=== PATIENT | female | born 1985 | race Caucasian/White ===

== ENCOUNTER 2019-10-07 19:08 | Emergency (ER) | payer BC ==
[2019-10-07] MEDS ORDERED: HYOSCYAMINE SULFATE ODT 0.125 MG TAB.SUBL SL ONE (19:14)
[2019-10-07] MEDS ORDERED: 0.9 % SODIUM CHLORIDE 1000ML 2,000 ML IV SCH (19:15)
--- NOTE | 2019-10-07 19:18 | Emergency Department Record ---
History of Present Illness - General Stated complaint: DIARRHEA,WEAKNESS Time Seen by Provider: 10/07/19 19:14 Source: Patient Mode of Arrival: Ambulatory Limitations: No limitations - History of Present Illness Initial comments: 34 yo female presents to ED for evaluation of nausea, abdominal cramping, and loose stools for the past 36 hours. Patient reports fever symptoms at home last evening, resolved today. 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 Patient denies urinary symptoms, flank pain, or dysuria symptoms. MD complaint: Abdominal pain, Diarrhea Onset/Timin -: Hour(s) Associated Abdominal Pain: Yes Location: Diffuse Radiation: None Severity: Mild Quality: Cramping Consistency: Constant Improves with: None Worsens with: None Associated Symptoms: Fever/chills, Nausea/vomiting - Related Data Home Medications Medication Instructions Recorded Confirmed Last Taken Bupropion HCl [Bupropion Xl] 150 mg PO DAILY 10/07/19 10/07/19 Unknown Buspirone HCl [Buspar] 5 mg PO DAILY 10/07/19 10/07/19 Unknown Levothyroxine Sodium [Synthroid] 25 mcg PO DAILY 10/07/19 10/07/19 Unknown Previous Rx's Medication Instructions Recorded Hyoscyamine Sulfate [Levsin-Sl] 0.25 mg SL Q8H PRN #15 tab.subl 10/07/19 Ondansetron [Zofran Odt] 4 mg PO Q8H PRN #15 tab.rapdis 10/07/19 Allergies Allergy/AdvReac Type Severity Reaction Status Date / Time No Known Drug Allergies Allergy Verified 10/07/19 19:32 Review of Systems Constitutional: Reports: Fever, Malaise, Weakness. Denies: Chills, Night sweats Eyes: Denies: Eye discharge, Eye pain ENT: Denies: Congestion, Ear pain, Epistaxis Respiratory: Denies: Cough, Dyspnea Cardiovascular: Denies: Chest pain, Dyspnea on exertion Endocrine: Denies: Fatigue, Heat or cold intolerance Gastrointestinal: Reports: Abdominal pain, Diarrhea, Nausea. Denies: Constipation, Vomiting Genitourinary: Denies: Incontinence, Retention Musculoskeletal: Denies: Arthralgia, Back pain Skin: Denies: Bruising, Change in color Neurological: Denies: Abnormal gait, Confusion, Tingling, Tremors Psychiatric: Denies: Anxiety Hematological/Lymphatic: Denies: Anemia, Blood Clots Physical Exam - General General Appearance: Alert, Oriented x3, Cooperative, Moderate distress Limitations: No limitations - Head Head exam: Atraumatic, Normocephalic, Normal inspection Head exam detail: negative: Abrasion, Contusion, Partida's sign, General t enderness, Hematoma, Laceration - Eye Eye exam: Normal appearance. negative: Conjunctival injection, Periorbital swelling, Periorbital tenderness, Scleral icterus - ENT Ear exam: negative: Auricular hematoma, Auricular trauma Nasal Exam: negative: Active bleeding, Discharge, Dried blood, Foreign body Mouth exam: negative: Drooling, Laceration, Muffled voice, Tongue elevation - Neck Neck exam: Normal inspection. negative: Meningismus, Tenderness - Respiratory Respiratory exam: Normal lung sounds bilaterally. negative: Respiratory distress, Rhonchi, Stridor, Wheezes - Cardiovascular Cardiovascular Exam: Regular rate, Normal rhythm, Normal heart sounds - GI/Abdominal GI/Abdominal exam: Soft, Tenderness (Mild, diffuse TTP, no rebound, guarding, or peritoneal signs.). negative: Rebound, Rigid - Rectal Rectal exam: Deferred - exam: Deferred - Extremities Extremities exam: Normal inspection. negative: Pedal edema, Tenderness - Back Back exam: Denies: CVA tenderness (R), CVA tenderness (L) - Neurological Neurological exam: Alert, Normal gait, Oriented X3 - Psychiatric Psychiatric exam: Normal affect, Normal mood - Skin Skin exam: Normal color. negative: Abrasion Type of lesion: negative: abrasion Course - Reevaluation(s) Reevaluation #1: 10/07/19 20:18 Laboratory studies were reviewed and appear grossly unremarkable for an acute process. Reevaluation #2: 10/07/19 21:15 Patient was reassessed and updated on all results, reports that she is feeling much improved and appears stable for discharge at this time. Medical Decision Making - Lab Data Result diagrams: 10/07/19 19:25 10/07/19 19:53 Disposition Disposition: Discharge Clinical Impression: Diarrhea Qualifiers: Diarrhea type: unspecified type Qualified Code(s): R19.7 - Diarrhea, unspecified Disposition: Home, Self-Care Condition: (2) Stable Instructions: Acute Diarrhea (ED) Additional Instructions: Return to ED if your symptoms worsen or if you have any concerns. Levsin, Zofran, and Immodium as directed. Follow-up with your family doctor in 3-5 days as directed. Prescriptions: Hyoscyamine Sulfate [Levsin-Sl] 0.25 mg SL Q8H PRN #15 tab.subl PRN Reason: Abdominal Pain Ondansetron [Zofran Odt] 4 mg PO Q8H PRN #15 tab.rapdis PRN Reason: Nausea/Vomiting Time of Disposition: 21:15 Quality - Quality Measures Quality Measures: N/A - Blood Pressure Screening Does Patient Have Any of the Following: No Blood Pressure Classification: Pre-Hypertensive BP Reading Systolic Measurement: 123 Diastolic Measurement: 72 Screening for High Blood Pressure: < Pre-Hypertensive BP, F/U Documented > [[id number]] Pre-Hypertensive Follow-up Interventions: Referral to alternative/primary care provider.
[2019-10-07 19:29] LABS: ABSOLUTE NEUTROPHIL COUNT 6.55; BASO % 0.2 % (0-6); EOS % 1.9 % (0-6); GRAN % 75.9 % (47-80); HEMATOCRIT 48.5 % (35.0-47.0); HEMOGLOBIN 15.9 gm/dl (11.6-16.0); LYMPH % 11.2 % (16-45); MEAN CELL VOLUME 86.9 fl (81-97); MEAN CORPUSCULAR HGB CONC 32.8 g/dl (32-36); MEAN PLATELET VOLUME 9.5 fl (7.4-10.4); MONO % 10.8 % (0-9); PLATELET COUNT 307 K/uL (130-400); RED BLOOD COUNT 5.58 M/uL (3.80-5.40); RED CELL DISTRIBUTION WIDTH 13.2 % (11.5-14.5); WHITE BLOOD COUNT W/O DIFF 8.6 K/uL (4.2-12.2)
[2019-10-07 19:32] LABS: MEAN CORPUSCULAR HEMOGLOBIN 28.4 pg (27-33)
[2019-10-07 20:11] LABS: BLOOD UREA NITROGEN 4 mg/dL (6-20); CREATININE 0.6 mg/dL (0.5-0.9); EST GLOMERULAR FILTRATION RATE > 60 mL/min
[2019-10-07 20:12] LABS: TOTAL PROTEIN 6.2 g/dL (6.6-8.7)
[2019-10-07 20:14] LABS: GLUCOSE,RANDOM 73 mg/dL (74-109)
[2019-10-07 20:17] LABS: ALB/GLOB RATIO 1.8 (1.1-1.8); ALKALINE PHOSPHATASE 52 U/L (35-104); ALT/SGPT 14 U/L (<33); AST/SGOT 17 U/L (10.0-35.0)
[2019-10-07] MEDS ORDERED: LOPERAMIDE 2 MG CAPSULE PO ONE (20:20)
[2019-10-07] MEDS ORDERED: 0.9 % SODIUM CHLORIDE 1000ML 1,000 ML IV SCH (20:30)
== END 2019-10-07 21:23 | disposition home or self-care (01) ==
LOC: ER 19:08
DX: R19.7 Diarrhea, unspecified (principal); R11.2 Nausea with vomiting, unspecified; R53.1 Weakness
CPT/HCPCS: 80053; 85025; 96360; 99284; J7030